=== PATIENT | male | born 1985 | race Caucasian/White ===

== ENCOUNTER 2016-09-26 23:06 | Inpatient (IN) | payer OTHER ==
--- NOTE | ~2016-09-26 | DS ---
Unit #: [id number] #: [id number] Patient: KENYATTA SWAN [id number] [facility] [place] [address] [id number] MR#: [id number] NAME: KENYATTA SWAN ROOM: [facility] Age: 30 Sex: M Admission Date: 09/26/2016 : 1985 Discharge Date: 09/29/2016 Attending Physician: Ashley Hunter M.D. Primary Care Physician: Primary Care Physician No DISCHARGE SUMMARY IDENTIFYING DATA Mr. Swan is a 30-year-old single white male, who was self-referred to the hospital. DISCHARGE DIAGNOSES Psychiatric: Alcohol dependence, moderate, in acute withdrawals; alcohol-induced mood disorder. Medical: Hypertension. Stressors: Moderate psychosocial stressors. HISTORY OF PRESENT ILLNESS Please see initial psychiatric evaluation for details. PAST PSYCHIATRIC HISTORY Please see initial psychiatric evaluation for details. PAST MEDICAL HISTORY Please see initial psychiatric evaluation for details. HOSPITAL COURSE The patient was admitted [facility] the adult [facility] and was oriented to the hospital environment. Routine p.r.n. medications were initiated, and he was started back on his home medications and detox protocol for alcohol was initiated as well. He was taking the medications regularly and was tolerating them fairly well and was able to show a decent therapeutic response as well as continue treatment on an outpatient basis and as such, it was decided that he will be discharged home and will continue treatment on an outpatient basis. DISCHARGE MEDICATIONS Norvasc 5 mg a day for hypertension. DISCHARGE CONDITION Stable. PROGNOSIS Fair. Dictated by... Ashley Hunter M.D. IAA/modl Unit #: [id number] #: [id number] Patient: KENYATTA SWAN TD: 09/29/2016 06:37 JOB #: [id number] DISCHARGE SUMMARY Page 1 of 1 X Ashley Hunter MD X DISCHARGE SUMMARY
--- NOTE | ~2016-09-26 | HP ---
Unit #: [id number] #: [id number] Patient: BRAIN SWAN [id number] [place] [address] [id number] MR#: [id number] NAME: BRAIN SWAN ROOM: 79 Age: 30 Sex: M Admission Date: 09/26/2016 : 1985 Attending Physician: Ashley Hunter M.D. Admitting Physician: Ashley Hunter M.D. Primary Care Physician: Primary Care Physician No HISTORY AND PHYSICAL HISTORY OF PRESENT ILLNESS Brain is a 30 year old admitted to [facility] because of his continued abuse of alcohol. PAST MEDICAL HISTORY 1. Long history of alcohol abuse. 2. Morbid obesity. 3. High blood pressure. PAST SURGICAL HISTORY Nothing reported. ALLERGIES No known drug allergies. SOCIAL HISTORY He does not smoke. Drinks a liter of liquor on a daily basis, and denies illicit drug use. FAMILY HISTORY Medically noncontributory. REVIEW OF SYSTEMS CONSTITUTIONAL: No fever or chills. HEENT: Denies any sore throat, ear pain or runny nose. CARDIOVASCULAR: Denies chest pain, irregular heart rhythm or palpitations. CHEST: Denies shortness of breath or cough. No hemoptysis. GASTROINTESTINAL: Denies nausea, vomiting, diarrhea or chronic constipation. ENDOCRINE: Denies history of increased thirst or urination. No recent significant weight loss or gain. GENITOURINARY: Denies dysuria, frequency, or hematuria. SKIN: Denies any rashes. HEMATOLOGIC: Denies history of increased bleeding or bruising. MUSCULOSKELETAL: Denies any hot, swollen joints. No generalized muscle pain. NEUROLOGIC: Denies problems with vision or speech. No frequent, severe headaches. No numbness, tingling or weakness in any extremities. Denies loss of bladder or bowel control. CURRENT MEDICATIONS Detox protocol. Unit #: [id number] #: [id number] Patient: BRAIN SWAN PHYSICAL EXAMINATION GENERAL: Alert, morbidly obese. No apparent distress. VITAL SIGNS: Blood pressure 170/80, heart rate 100, respirations 16, and temperature 98.6. WEIGHT: 300. HEIGHT: 6 feet 0 inches. SKIN: Warm and dry without rash or lesion. HEENT: Normocephalic. TMs not viewed. Oral and nasal passages clear. Conjunctivae clear. PERRLA. EOMs intact. NECK: Supple without lymphadenopathy or thyromegaly. HEART: Regular rate and rhythm without murmur. LUNGS: Clear. ABDOMEN: Soft, nontender. : Not done. EXTREMITIES: No evidence of cyanosis, clubbing or edema. Moves all without focal deficit. NEUROLOGICAL: Grossly within normal limits. Cranial Nerves: II: Visual lassiter are intact. III, IV AND : Extraocular movements are intact. Pupils are equal, round and reactive to light. V: Facial sensation is grossly normal. VII: Facial movements and expression are normal. VIII: Auditory acuity grossly intact. IX, X: Uvula is midline. Phonation is normal. XI: Patient shrugs shoulders and turns head normally. XII: Tongue protrudes in the midline. Sensory and Motor Function: Sensory and motor sensation is grossly normal. Motor: moves all extremities well. Coordination: Gait is normal. Deep Tendon Reflexes: Intact. IMPRESSION Psychiatric admission. RECOMMENDATIONS PSYCHIATRIC: Per psychiatrist. MEDICAL: 1. I see no contraindication to participate in this facility's activities. 2. Start [facility] 1 p.o. q. day. MEDICAL PROGNOSIS Good. MEDICAL CONDITION Stable. Dictated by... Abi Valentin PWillaAWilla-C. for Scot Manuel/mel TD: 09/28/2016 08:00 JOB #: [id number] Unit #: [id number] #: [id number] Patient: BRAIN SWAN HISTORY AND PHYSICAL Page 1 of 1 X Abi Valentin HISTORY AND PHYSICAL
--- NOTE | ~2016-09-26 | PA ---
Unit #: [id number] #: [id number] Patient: KENYATTA SWAN [id number] [facility] [address] [place] [address] [id number] I MR#: [id number] NAME: KENYATTA SWAN ROOM: P179 Age: 30 Sex: M Admission Date: 09/26/2016 : 1985 Date of Assessment: 09/27/2016 Attending Physician: Ashley Hunter M.D. Admitting Physician: Ashley Hunter M.D. Primary Care Physician: Primary Care Physician No PSYCHIATRIC ASSESSMENT DATE OF SERVICE 09/27/2016. IDENTIFYING DATA Mr. Swan is a 30-year-old single white male, who was self-referred to the hospital and was accompanied by his father and had a blood alcohol level of 0.080 upon presentation. CHIEF COMPLAINT "I have been drinking a liter of vodka a day for the past 2 to 3 years." HISTORY OF PRESENT ILLNESS Mr. Swan is a 30-year-old white male with long history of substance abuse and dependence, who was brought to the hospital accompanied by his father. Upon presentation, he stated that he has been drinking a liter of vodka daily for the last 2 to 3 years and denied any other substance abuse and reports decompensating on his daily functioning and having visual hallucination a few nights ago and that he drank a half a pint earlier today and as such, he was intoxicated upon presentation. He does report depression and anxiety and that he has not been eating or sleeping well and has a history of delirium tremens as he is going through divorce and reports that alcohol played a part in the breakup. He reports that he has missed work and that he has had cognitive problems due to his drinking. He has been from his since 04/2016 and he is going through a divorce and reports feelings of hopelessness and helplessness and has a history of suicidal ideation with at least one prior suicide attempt and reports that he held a gun to his head, though currently he denies any active suicidal ideations, intent, or plan. SUBSTANCE ABUSE HISTORY The patient reports a long history of alcohol dependence and has experimented with cannabis and opioids and amphetamines in the past, but opioids has been his drug of choice as he has been drinking since he was 15 years old and currently has been drinking a liter of vodka on a daily basis. PAST PSYCHIATRIC HISTORY The patient has had a history of inpatient chemical dependency treatment at the [facility], and review of the medical records indicate that currently he is not active in any treatment program, is not seeing a psychiatrist, and is not taking any psychotropic medications. PAST MEDICAL HISTORY Unit #: [id number] #: [id number] Patient: KENYATTA SWAN Hypertension. ALLERGIES No known medication allergies. PERSONAL AND SOCIAL HISTORY A 30-year-old white male, who reports that he is and is going through divorce and is currently unemployed and is living with his father and has poor social support system. MENTAL STATUS EXAMINATION Young white male, who was casually dressed with a fair personal hygiene, appears to be in no acute distress or discomfort. He was awake and alert on interaction with intact orientation to time, place, and person. His mood was anxious and depressed with a congruent affect. His speech was slow and restricted in content. His thought processes were disorganized with some looseness of associations and flight of ideas. He denies any current suicidal or homicidal ideations and also denies any auditory hallucinations. He does report some visual hallucinations. His insight and judgment remain significantly impaired. DIAGNOSTIC IMPRESSION Psychiatric: Alcohol dependence, moderate, in acute withdrawals and alcohol-induced mood disorder. Medical: Hypertension. Stressors: Moderate psychosocial stressors. TREATMENT PLAN 1. The patient has presented with a history of mood disorder and has been decompensating and will need inpatient hospitalization for safety and stabilization. We will start him back on his home medications and we will also start the alcohol detox protocol. 2. Supportive therapy was provided to the patient. 3. Safe, structured, and nourishing environment will be provided. ESTIMATED LENGTH OF STAY 5 to 7 days. ABILITY TO HELP SELF Limited. WILLINGNESS TO HELP SELF The patient appears to be willing to help self. STRENGTHS 1. Communicative. 2. Cooperative. PROBLEMS 1. Chronic dysphoric symptoms. 2. Chronic chemical dependency. 3. Poor social support system. DISCHARGE CRITERIA This will be contingent upon the patient's ability to show resolution of his depression and anxiety and his ability to go through detox without having any significant withdrawal symptoms as well as his ability to stay safe to himself, particularly after discharge from the hospital. Unit #: [id number] #: [id number] Patient: BENY,KENYATTA Dictated by... Scot Chavarria/andrea TD: 09/27/2016 16:12 JOB #: [id number] PSYCHIATRIC ASSESSMENT Page 1 of 1 X Ashley Hunter MD PSYCHIATRIC ASSESSMENT
--- NOTE | ~2016-09-26 | PN ---
Unit #: [id number] #: [id number] Patient: KENYATTA SWAN [id number] [facility] [address] [place] [address] [id number] MR#: [id number] NAME: KENYATTA SWAN ROOM: P179 Age: 30 Sex: M Admission Date: 09/26/2016 : 1985 Attending Physician: Ashley Hunter M.D. Admitting Physician: Ashley Hunter M.D. Primary Care Physician: Primary Care Physician Mariia LIN PROGRESS NOTES DATE OF SERVICE: 09/28/2016 SUBJECTIVE Mr. Swan is a 30-year-old white male who was seen today and chart was reviewed, and case was discussed with the staff. He has been anxious, withdrawn, and seclusive to himself, though he reports anxiety and tremors as well as poor sleep at night. MENTAL STATUS EXAMINATION Young white male who was casually dressed with fair personal hygiene, appears to be in no acute distress or discomfort. He was awake and alert with impaired attention and concentration. His mood was anxious with a congruent affect. His speech is slow and restricted in content. His thought processes were disorganized with looseness of associations. His insight and judgment remain significantly impaired. TREATMENT PLAN 1. We will continue him on his current medications and treatment protocol. We will monitor his response to the medication and make further adjustments as needed. 2. We will continue to follow up. Dictated by... Scot Chavarria/andrea TD: 09/28/2016 08:05 JOB #: [id number] [facility] PROGRESS NOTES Page 1 of 1 X Ashley Hunter MD PROGRESS NOTE
[2016-09-27 12:49] LABS: THYROID STIMULATING HORMONE 3.32 uIU/ml (0.34-5.60)
[2016-09-27 12:56] LABS: FREE THYROXIN (T4) 0.95 ng/dL (0.58-1.64)
== END 2016-09-29 17:05 | disposition home or self-care (01) | DRG 897 ==
LOC: P1E 23:06
PROVIDERS: Psychiatry & Neurology Psychiatry
PROC: HZ2ZZZZ Detoxification Services for Substance Abuse Treatment (ICD-10-PCS; principal; 2016-09-26)
DX: F10.239 Alcohol dependence with withdrawal, unspecified (principal); E66.01 Morbid (severe) obesity due to excess calories; I10 Essential (primary) hypertension; F10.24 Alcohol dependence with alcohol-induced mood disorder; J06.9 Acute upper respiratory infection, unspecified; R94.5 Abnormal results of liver function studies; Z79.899 Other long term (current) drug therapy
CPT/HCPCS: 84439; 84443; 86592